=== PATIENT | male | born 1975 | race Caucasian/White ===

== ENCOUNTER 2024-05-29 11:30 | Inpatient (IN) | payer OTHER ==
[~2024-05-29] VITALS: Ht 165.1 cm; Wt 75.7 kg
[2024-05-29] MEDS ORDERED: DILTIAZEM HCL 25 MG IV ONE (11:52)
[2024-05-29] MEDS: DILTIAZEM HCL 50 MG IV IV ONE (11:55)
[2024-05-29 11:57] LABS: BASOPHILS # (AUTO) 0.1 K/uL (0.0-0.2); BASOPHILS % (AUTO) 1.4 % (0.0-2.0); EOSINOPHILS # (AUTO) 0.2 K/uL (0.0-0.7); EOSINOPHILS % (AUTO) 3.8 % (0.0-6.0); HEMATOCRIT 38 % (39-51); HEMOGLOBIN 12.5 g/dL (13.5-17.5); LYMPHOCYTES # (AUTO) 0.8 K/uL (0.8-4.8); LYMPHOCYTES % (AUTO) 19.5 % (20.0-44.0); MEAN CORPUSCULAR HEMOGLOBIN 31 PG (26.0-33.0); MEAN CORPUSCULAR HGB CONC 33 g/dl (31.0-36.0); MEAN CORPUSCULAR VOLUME 94 fL (80-96); MONOCYTES # (AUTO) 0.4 K/uL (0.1-1.30); MONOCYTES % (AUTO) 8.8 % (2.0-12.0); NEUTROPHILS # (AUTO) 2.9 K/uL (1.8-8.9); NEUTROPHILS % (AUTO) 66.5 % (43.0-81.0); PLATELET COUNT (AUTO) 202 K/uL (150-450); RED BLOOD CELL COUNT(AUTO) 4.02 MIL/uL (4.5-6.0); RED CELL DISTRIBUTION WIDTH 14.9 % (11.5-15.0); WHITE BLOOD COUNT (AUTO) 4.4 K/uL (4.3-11.0)
[2024-05-29] MEDS: DILTIAZEM HCL IV 125 MG in IV NS 0.9% 100 ML IV PRN (12:00)
[2024-05-29] MEDS: IV NS 0.9% 500 ML BAG IV ONE (12:00)
[2024-05-29] MEDS ORDERED: Magnesium 1GM/D5W 100ML PREMIX 100 ML IV ONE (12:10)
[2024-05-29 12:12] LABS: CARBON DIOXIDE 37 mmol/L (21-32); CHLORIDE 99 mmol/L (98-107); CREATININE 5.3 mg/dL (0.6-1.3); GLUCOSE 175 mg/dL (74-106); POTASSIUM 4.5 mmol/L (3.5-5.1); SODIUM SERUM 142 mmol/L (136-145); UREA NITROGEN, BLOOD 22 mg/dL (7-18)
[2024-05-29] MEDS: Magnesium 1GM/D5W 100ML PREMIX 100 ML IV SCH (12:15)
[2024-05-29 12:28] LABS: MAGNESIUM 2.2 mg/dL (1.8-2.4); PHOSPHORUS 3.3 mg/dL (2.5-4.9)
[2024-05-29] MEDS: AMIODARONE 150 MG in IV D5W 100 ML IV ONE (12:30)
[2024-05-29] MEDS ORDERED: AMIODARONE 150 MG/3 ML VIAL IV ONE (12:30)
[2024-05-29] MEDS ORDERED: ONDANSETRON HCL/PF 4 MG/2 ML VIAL ONE (13:03)
[2024-05-29] MEDS ORDERED: MORPHINE SULFATE INJ 4 MG/ML DISP.SYRIN ONE (13:04)
[2024-05-29] MEDS: ONDANSETRON HCL/PF 4 MG/2 ML VIAL IVP ONE (13:08)
[2024-05-29] MEDS: MORPHINE SULFATE INJ 2 MG/ML DISP.SYRIN IV ONE (13:09)
[2024-05-29] MEDS: METOPROLOL TARTRATE INJ 5 MG/5 ML AMPUL IV ONE (14:05)
[2024-05-29] MEDS ORDERED: METOPROLOL TARTRATE INJ 5 MG/5 ML AMPUL ONE (14:05)
[2024-05-29] MEDS: AMIODARONE 450 MG in IV D5W 241 ML IV PRN (14:38)
[2024-05-29] MEDS: DILTIAZEM HCL 30 MG TABLET PO SCH (16:36)
[2024-05-29 17:00] VITALS: BP 178/98; TEMP 98.2; O2SAT 99
[2024-05-29] MEDS ORDERED: MAG HYDROX/AL HYDROX/SIMETH 30 ML UDC PO PRN (17:30)
[2024-05-29] MEDS ORDERED: Z GUARD REMEDY 4 OZ OINT TP PRN (17:30)
[2024-05-29] MEDS ORDERED: ONDANSETRON HCL/PF 4 MG/2 ML VIAL IVP PRN (17:30)
[2024-05-29] MEDS ORDERED: MORPHINE SULFATE INJ 2 MG/ML DISP.SYRIN IV PRN (17:30)
[2024-05-29] MEDS ORDERED: MAGNESIUM HYDROXIDE 30 ML UDC PO PRN (17:30)
[2024-05-29] MEDS ORDERED: ZOLPIDEM TARTRATE 5 MG TABLET PO PRN (17:30)
[2024-05-29] MEDS: ACETAMINOPHEN 325 MG TABLET PO PRN (18:09)
[2024-05-29] MEDS: NITROGLYCERIN 0.4 MG/TAB BOTTLE SL PRN (18:10)
[2024-05-29 18:40] LABS: THYROID STIMULATING HORMONE 3.51 uIU/mL (0.358-3.74)
[2024-05-29 19:00] VITALS: BP 148/90; TEMP 98; O2SAT 98
[2024-05-29] MEDS ORDERED: TAMS-12 PO (19:08)
[2024-05-29] MEDS ORDERED: ACET-637 PO (19:08)
[2024-05-29] MEDS ORDERED: ATOR40TA PO (19:08)
[2024-05-29] MEDS ORDERED: DOCU-270 PO (19:08)
[2024-05-29] MEDS ORDERED: GABA-532 PO (19:08)
[2024-05-29] MEDS ORDERED: PANT40TA49 PO (19:08)
[2024-05-29] MEDS ORDERED: FOLI0.8T3 PO (19:08)
[2024-05-29] MEDS ORDERED: SUCR500T PO (19:08)
[2024-05-29] MEDS ORDERED: BUME1TAB8 PO (19:08)
[2024-05-29] MEDS ORDERED: AMLO-213 PO (19:08)
[2024-05-29] MEDS ORDERED: LOSA100T31 PO (19:08)
[2024-05-29] MEDS ORDERED: CARV25TA2 PO (19:08)
[2024-05-29] MEDS ORDERED: CHOL200059 PO (19:08)
[2024-05-29 21:00] VITALS: BP 146/90; TEMP 97.3; O2SAT 94
[2024-05-29] MEDS: hydrALAZINE HCL 25 MG TABLET PO SCH (21:27)
[2024-05-30 01:00] VITALS: BP 155/100; TEMP 97.4; O2SAT 98
[2024-05-30 05:00] VITALS: BP 142/90; TEMP 97.6; O2SAT 99
[2024-05-30 06:52] LABS: BASOPHILS % (AUTO) 0.9 % (0.0-2.0); EOSINOPHILS # (AUTO) 0.2 K/uL (0.0-0.7); EOSINOPHILS % (AUTO) 4.6 % (0.0-6.0); HEMATOCRIT 34 % (39-51); HEMOGLOBIN 11.6 g/dL (13.5-17.5); LYMPHOCYTES # (AUTO) 1.3 K/uL (0.8-4.8); LYMPHOCYTES % (AUTO) 26.4 % (20.0-44.0); MEAN CORPUSCULAR HEMOGLOBIN 31 PG (26.0-33.0); MEAN CORPUSCULAR HGB CONC 34 g/dl (31.0-36.0); MEAN CORPUSCULAR VOLUME 93 fL (80-96); MONOCYTES # (AUTO) 0.5 K/uL (0.1-1.30); MONOCYTES % (AUTO) 10.8 % (2.0-12.0); NEUTROPHILS # (AUTO) 2.7 K/uL (1.8-8.9); NEUTROPHILS % (AUTO) 57.3 % (43.0-81.0); PLATELET COUNT (AUTO) 173 K/uL (150-450); RED BLOOD CELL COUNT(AUTO) 3.68 MIL/uL (4.5-6.0); RED CELL DISTRIBUTION WIDTH 14.5 % (11.5-15.0); WHITE BLOOD COUNT (AUTO) 4.8 K/uL (4.3-11.0)
[2024-05-30 07:42] LABS: CALCIUM, SERUM 7.6 mg/dL (8.5-10.1); POTASSIUM 5.1 mmol/L (3.5-5.1)
[2024-05-30 07:45] LABS: MAGNESIUM 2.8 mg/dL (1.8-2.4); PHOSPHORUS 7.2 mg/dL (2.5-4.9)
[2024-05-30] MEDS: AMLODIPINE BESYLATE 5 MG TABLET PO SCH (08:52)
[2024-05-30 09:00] VITALS: BP 159/91; TEMP 98.4; O2SAT 97
[2024-05-30] MEDS ORDERED: HYDR-4076 PO (10:27)
== END 2024-05-30 11:24 | disposition home or self-care (01) | DRG 201 ==
LOC: EDBD 11:35 → ER 11:35 → TELE1 15:41 → MEDSG1 05-30 10:41
DX: I48.0 Paroxysmal atrial fibrillation (principal); I21.A1 Myocardial infarction type 2; I12.0 Hypertensive chronic kidney disease with stage 5 chronic kidney disease or end stage renal disease; I16.0 Hypertensive urgency; D64.9 Anemia, unspecified; E11.22 Type 2 diabetes mellitus with diabetic chronic kidney disease; N18.6 End stage renal disease; I48.92 Unspecified atrial flutter; M89.8X9 Other specified disorders of bone, unspecified site; Z99.2 Dependence on renal dialysis; R42 Dizziness and giddiness; R07.89 Other chest pain
CPT/HCPCS: 36415; 71045-TC; 80048-TC; 80061-TC; 83735-TC; 84100-TC; 84443-TC; 84484-TC; 85025-TC; 93307-TC; A4223; G0378; J0282; J2270; J2405; J3475; J3490; J7030; J7040; J7050; J7060